=== PATIENT | male | born 1985 | race Caucasian/White ===

== ENCOUNTER 2017-02-24 14:20 | Emergency (ER) | payer BC ==
[~2017-02-24] VITALS: Ht 188 cm; Wt 78.0 kg
[~2017-02-24 14:20] MED LIST: HYDR50TA94 PO; PRED20 PO
[2017-02-24 14:21] VITALS: BP 120/72; PULSE 72; RESP 15; TEMP 98.2; O2SAT 98
[2017-02-24] MEDS ORDERED: ACETAMINOPHEN/HYDROcodone 325 MG/5 MG TAB PO ONE (16:00)
[2017-02-24] MEDS ORDERED: NAPROXEN 500 MG TAB PO ONE (16:00)
--- NOTE | 2017-02-24 16:24 | RADRPT ---
EXAM DATE/TIME: 02/24/2017 16:08 [facility] COMPARISON: No previous studies available for comparison. INDICATIONS : Fall. Left foot pain. MEDICAL HISTORY : None. SURGICAL HISTORY : None. ENCOUNTER: Initial ACUITY: 1 day PAIN SCORE: 9/10 LOCATION: Left lateral FINDINGS: Three view examination of the left foot demonstrates no soft tissue swelling, dislocation, or fractur e. The tarsal bones appear intact. The interphalangeal and metatarsophalangeal joints are intact. The calcaneus is intact. Bony mineralization is normal. CONCLUSION: Intact left foot. Enmanuel Guerrier MD on February 24, 2017 at 16:22 Board Certified Radiologist. This report was verified electronically.
--- NOTE | 2017-02-24 16:30 | RADRPT ---
EXAM DATE/TIME: 02/24/2017 16:10 [facility] COMPARISON: No previous studies available for comparison. INDICATIONS : Fall. Left ankle pain. MEDICAL HISTORY : None. SURGICAL HISTORY : None. ENCOUNTER: Initial ACUITY: 1 day PAIN SCORE: 9/10 LOCATION: Left lateral FINDINGS: Three view exam was performed of the left ankle. The bony structures are in normal alignment. No ev idence of fracture, dislocation, or soft tissue swelling. The ankle mortise is intact. No radiopaqu e foreign bodies are seen. Bony mineralization is normal. CONCLUSION: No evidence of ankle fracture. Enmanuel Guerrier MD on February 24, 2017 at 16:28 Board Certified Radiologist. This report was verified electronically.
[2017-02-24] MEDS ORDERED: NAPR500 PO (16:52)
[2017-02-24] MEDS ORDERED: HYDR-3533 PO (16:52)
--- NOTE | 2017-02-24 16:52 | PD ---
HPI Chief Complaint: Injury Time Seen by Provider: 15:48 Travel History International Travel<30 days: No Contact w/Intl Traveler<30days: No Traveled to known affect area: No History of Present Illness HPI This is a 31-year-old man who presents to the emergency department complaining of left ankle pain. He was at a trampoline park yesterday when he landed on his foot wrong and had pain. Immediately a difficulty walking on the leg. He has pain over the lateral foot and the lateral ankle with weightbearing. Symptoms were persistent overnight so he came to the emergency department today. He otherwise has been feeling generally well and healthy. Denies any other new or worsening symptoms. History Past Medical History Medical History: Denies Significant Hx Social History Alcohol Use: No Tobacco Use: No Allergies-Medications (Allergen,Severity, Reaction): Coded Allergies: Penicillin (Verified Allergy, Unknown, 02/24/17) Reported Meds & Prescriptions Reported Meds & Active Scripts Active Atarax (Hydroxyzine HCl) 50 Mg Tab 50 Mg PO Q6HR PRN Deltasone (Prednisone) 20 Mg Tab 20 Mg PO BID Review of Systems Except as stated in HPI: all other systems reviewed are Neg Physical Exam Narrative GENERAL: Well-appearing 31-year-old man, no acute distress. SKIN: Warm and dry. CARDIOVASCULAR: Warm and well perfused. RESPIRATORY: Normal rate and effort. MUSCULOSKELETAL: Generally normal appearance of the foot and ankle on the left. There is a little bit of ecchymosis and bruising over the posterior lateral foot, just anterior and distal to the lateral malleolus. He has pain with plantar flexion of the foot and pain with plantar flexion against resistance. There is tenderness over the lateral foot on the side, and the lateral proximal midfoot just anterior to the lateral malleolus. There is a little bit of ecchymosis and bruising just inferior to the lateral malleolus. There is no pain with squeeze of the metatarsals. NEUROLOGICAL: Awake and alert. No gross deficits. Data Data Last Documented VS Vital Signs Date Time Temp Pulse Resp B/P Pulse Ox O2 Delivery O2 Flow Rate FiO2 02/24/17 14:21 98.2 72 15 120/72 98 Orders Ankle, Complete ([id number]) (02/24/17 ) Foot, Complete ([id number]) (02/24/17 ) Naproxen (Naprosyn) (02/24/17 16:00) Acetamin-Hydrocod 325-5 Mg ([place] 5-325 (02/24/17 16:00) Support Splint (02/24/17 16:27) Crutches (02/24/17 16:27) MDM Medical Decision Making Medical Screen Exam Complete: Yes Emergency Medical Condition: Yes Differential Diagnosis Ankle strain or sprain, fracture, midfoot injury, other Narrative Course Medical decision making INITIAL: Is a 31-year-old man who presents to the emergency department complaining of pain on the lateral ankle, lateral foot after landing on it wrong. It a murmur the exact mechanism of injury. Does have any pain across dorsal aspect of the midfoot or risk wheeze. X-rays are negative. Recommend splint supportive treatment. Diagnosis Primary Impression: Left ankle sprain Additional Instructions: Keep leg elevated as a for comfort. Weight-bear as tolerated. Follow-up with your primary doctor if you cannot bear weight normally in one week. Wear splint as needed for comfort. Take Naprosyn and Lortab as needed for pain. Med/Other Pt SpecificInfo: Prescription(s) given Scripts Naproxen (Naprosyn)500 Mg Oip325 Mg PO BID PRN (PAIN SCALE 1 TO 10) #20 TAB Prov:Tulio Ricardo MD 02/24/17 Hydrocodone-Acetaminophen (Lortab)5-325 Mg Tab1-2 Tab PO Q6H PRN (PAIN) #12 TAB Prov:Tulio Ricardo MD 02/24/17 Disposition: 01 DISCHARGE HOME Condition: Stable Tulio Ricardo MD Feb 24, 2017 16:52
== END 2017-02-24 17:21 | disposition home or self-care (01) ==
LOC: NEPD 14:20
DX: S93.402A Sprain of unspecified ligament of left ankle, initial encounter (principal); X58.XXXA Exposure to other specified factors, initial encounter; Y93.44 Activity, trampolining
CPT/HCPCS: 73610; 73630; 99283; E0113; L1906